=== PATIENT | male | born 1980 | race Caucasian/White ===

== ENCOUNTER 2024-01-20 05:16 | Inpatient (IN) | payer BC ==
[~2024-01-20] VITALS: Ht 165.1 cm; Wt 94.3 kg
[2024-01-20 05:36] VITALS: BP_SYST 153; PULSE 113; RESP 18; TEMP 97.9; O2SAT 99
[2024-01-20 07:31] LABS: BASOPHILS # (AUTO) 0.1 K/uL (0.0-0.2); BASOPHILS % (AUTO) 1.1 % (0.0-2.0); EOSINOPHILS # (AUTO) 0.1 K/uL (0.0-0.4); EOSINOPHILS % (AUTO) 1.1 % (0.0-4.0); HEMATOCRIT 36.2 % (36-54); HEMOGLOBIN 12.6 g/dL (14.0-18.0); LYMPHOCYTES # (AUTO) 2.8 K/uL (1.0-5.5); LYMPHOCYTES % (AUTO) 22.3 % (20.5-51.5); MEAN CORPUSCULAR HEMOGLOBIN 35 pg (27-31); MEAN CORPUSCULAR HGB CONC 35 % (32-36); MEAN CORPUSCULAR VOLUME 101 fL (79.0-98.0); MONOCYTES # (AUTO) 0.9 K/uL (0.0-1.0); MONOCYTES % (AUTO) 7.3 % (1.7-9.3); NEUTROPHILS # (AUTO) 8.5 K/uL (1.8-7.7); NEUTROPHILS % (AUTO) 68.2 % (40.0-70.0); PLATELET COUNT (AUTO) 187 K/uL (130-430); WHITE BLOOD COUNT (AUTO) 12.5 K/uL (4.8-10.8)
[2024-01-20 07:56] LABS: INR 1.2 (0.80-1.20); PROTHROMBIN TIME 12.8 SECS (9.5-12.5)
[2024-01-20 07:59] LABS: ALBUMIN 2.6 g/dL (3.4-4.8); BILIRUBIN,DIRECT 3.3 mg/dL (0.0-0.3); CALCIUM 8.8 mg/dL (8.4-11.0); CREATININE 0.68 mg/dL (0.55-1.30); POTASSIUM 3.4 mmol/L (3.5-5.1); TOTAL BILIRUBIN 4.6 mg/dL (0.0-1.0); TOTAL PROTEIN, SERUM 9.1 g/dL (6.4-8.3)
[2024-01-20] MEDS: PANTOPRAZOLE SODIUM 40 MG/VIAL (PROTONIX) IVP ONE (09:38)
[2024-01-20] MEDS ORDERED: FOLIC ACID 1 MG, THIAMINE HCL 100 MG, MAGNESIUM SULFATE 1 GM, MVI 10 ML in NACL 0.9% 1,... IV SCH (12:00)
[2024-01-20] MEDS ORDERED: LORazepam 2 MG/ML VIAL IVP PRN (12:00)
[2024-01-20] MEDS: chlordiazePOXIDE HCL 25 MG CAPSULE PO SCH (14:37)
[2024-01-20] MEDS: THIAMINE HCL 100 MG, MAGNESIUM SULFATE 1 GM in NS 100 ML IV SCH (14:44)
[2024-01-20] MEDS: FOLIC ACID 1 MG, MVI 10 ML in NACL 0.9% 1,000 ML IV SCH (14:56)
[2024-01-20 18:05] VITALS: BP_SYST 131; PULSE 86; RESP 16; TEMP 98.7; O2SAT 97
[2024-01-20 20:00] VITALS: BP_SYST 127; PULSE 98; RESP 18; TEMP 97.8; O2SAT 99
[2024-01-20] MEDS: PANTOPRAZOLE SODIUM 40 MG/VIAL (PROTONIX) IVP SCH (20:20)
[2024-01-21] VITALS: BP_SYST 124; PULSE 78; RESP 18; TEMP 97.8; O2SAT 99
[2024-01-21 05:29] LABS: BASOPHILS # (AUTO) 0.1 K/uL (0.0-0.2); BASOPHILS % (AUTO) 0.7 % (0.0-2.0); EOSINOPHILS # (AUTO) 0.3 K/uL (0.0-0.4); EOSINOPHILS % (AUTO) 2.2 % (0.0-4.0); HEMATOCRIT 32.5 % (36-54); HEMOGLOBIN 11.3 g/dL (14.0-18.0); LYMPHOCYTES # (AUTO) 3.6 K/uL (1.0-5.5); LYMPHOCYTES % (AUTO) 29.6 % (20.5-51.5); MEAN CORPUSCULAR HEMOGLOBIN 36 pg (27-31); MEAN CORPUSCULAR HGB CONC 35 % (32-36); MEAN CORPUSCULAR VOLUME 102 fL (79.0-98.0); MONOCYTES % (AUTO) 8.4 % (1.7-9.3); NEUTROPHILS # (AUTO) 7.2 K/uL (1.8-7.7); NEUTROPHILS % (AUTO) 59.1 % (40.0-70.0); PLATELET COUNT (AUTO) 166 K/uL (130-430); RED BLOOD CELL COUNT(AUTO) 3.19 MIL/uL (4.2-6.2); RED CELL DISTRIBUTION WIDTH 15.7 % (9.0-15.0); WHITE BLOOD COUNT (AUTO) 12.2 K/uL (4.8-10.8)
[2024-01-21 05:42] LABS: INR 1.3 (0.80-1.20); PROTHROMBIN TIME 13.3 SECS (9.5-12.5)
[2024-01-21 06:17] LABS: ALBUMIN 2.3 g/dL (3.4-4.8); CALCIUM 8.2 mg/dL (8.4-11.0); CREATININE 0.65 mg/dL (0.55-1.30); POTASSIUM 3.4 mmol/L (3.5-5.1); TOTAL PROTEIN, SERUM 8.4 g/dL (6.4-8.3)
[2024-01-21 08:05] VITALS: O2SAT 98
[2024-01-21 08:29] VITALS: BP_SYST 122; BP_SYST 126; PULSE 118; PULSE 85; RESP 18; TEMP 97.9; TEMP 98.8; O2SAT 97; O2SAT 98
[2024-01-21 11:46] VITALS: BP_SYST 130; PULSE 89; RESP 16; TEMP 98.5; O2SAT 98
[2024-01-21 16:30] VITALS: BP_SYST 126; PULSE 80; RESP 17; TEMP 97.9; O2SAT 97
[2024-01-21] MEDS: POTASSIUM CHLORIDE 20 MEQ TABLET.ER PO ONE (17:16)
[2024-01-21 20:00] VITALS: BP_SYST 137; PULSE 94; RESP 18; TEMP 98.8; O2SAT 97
[2024-01-22] VITALS (7 sets, daily range): BP systolic 123–135; PULSE 87–98; RESP 15–18; TEMP 97.3–99.7; O2SAT 97–99
[2024-01-22 06:02] LABS: BASOPHILS # (AUTO) 0.1 K/uL (0.0-0.2); BASOPHILS % (AUTO) 0.8 % (0.0-2.0); EOSINOPHILS # (AUTO) 0.3 K/uL (0.0-0.4); EOSINOPHILS % (AUTO) 2.7 % (0.0-4.0); HEMATOCRIT 32.5 % (36-54); HEMOGLOBIN 11.1 g/dL (14.0-18.0); LYMPHOCYTES # (AUTO) 3.7 K/uL (1.0-5.5); LYMPHOCYTES % (AUTO) 31.7 % (20.5-51.5); MEAN CORPUSCULAR HEMOGLOBIN 35 pg (27-31); MEAN CORPUSCULAR HGB CONC 34 % (32-36); MEAN CORPUSCULAR VOLUME 103 fL (79.0-98.0); MONOCYTES % (AUTO) 8.5 % (1.7-9.3); NEUTROPHILS # (AUTO) 6.5 K/uL (1.8-7.7); NEUTROPHILS % (AUTO) 56.3 % (40.0-70.0); PLATELET COUNT (AUTO) 164 K/uL (130-430); RED BLOOD CELL COUNT(AUTO) 3.17 MIL/uL (4.2-6.2); WHITE BLOOD COUNT (AUTO) 11.6 K/uL (4.8-10.8)
[2024-01-22 06:07] LABS: INR 1.3 (0.80-1.20); PROTHROMBIN TIME 12.9 SECS (9.5-12.5)
[2024-01-22 06:25] LABS: ALBUMIN 2.2 g/dL (3.4-4.8); CALCIUM 8.4 mg/dL (8.4-11.0); CREATININE 0.64 mg/dL (0.55-1.30); POTASSIUM 3.7 mmol/L (3.5-5.1); TOTAL BILIRUBIN 4.6 mg/dL (0.0-1.0); TOTAL PROTEIN, SERUM 7.7 g/dL (6.4-8.3)
[2024-01-22] MEDS: BISACODYL 5 MG TABLET.DR (DULCOLAX) PO ONE (16:54)
[2024-01-22] MEDS: GOLYTELY / COLYTE SOLUTION 4 LITERS PO ONE (17:43)
[2024-01-23 01:10] VITALS: BP_SYST 131; PULSE 91; RESP 18; TEMP 98.6; O2SAT 92
[2024-01-23 04:54] LABS: INR 1.3 (0.80-1.20); PROTHROMBIN TIME 12.9 SECS (9.5-12.5)
[2024-01-23] MEDS ORDERED: fentaNYL CITRATE/PF 100 MCG/2 ML AMP ONE ×2 (07:07→08:58)
[2024-01-23] MEDS ORDERED: MIDAZOLAM HCL 5 MG/5 ML VIAL ONE ×2 (07:07→08:59)
[2024-01-23] MEDS ORDERED: SIMETHICONE 40 MG/0.6 ML ML ONE ×2 (07:07→08:58)
[2024-01-23 08:34] VITALS: BP_SYST 120; PULSE 84; RESP 18; TEMP 97.4; O2SAT 99
[2024-01-23 11:05] VITALS: BP_SYST 129; PULSE 70; RESP 16; TEMP 97.9; O2SAT 95
[2024-01-23] MEDS ORDERED: CHLO25CA10 PO (13:54)
[2024-01-23 15:25] VITALS: BP_SYST 123; PULSE 98; RESP 15; TEMP 98.2; O2SAT 98
[2024-01-23 16:14] VITALS: BP_SYST 145; PULSE 99; RESP 18; TEMP 97.7; O2SAT 96
== END 2024-01-23 18:40 | disposition home or self-care (01) | DRG 393 ==
LOC: SED 05:16 → SMU 08:26 → STU 01-21 04:28 → SMU 01-22 13:35
PROVIDERS: ADMIT Internal Medicine; ATTEND Internal Medicine
PROC: 0DBM8ZX Excision of Descending Colon, Via Natural or Artificial Opening Endoscopic, Diagnostic (ICD-10-PCS; principal; 2024-01-23 10:45)
DX: K64.8 Other hemorrhoids (principal); E43 Unspecified severe protein-calorie malnutrition; D62 Acute posthemorrhagic anemia; R18.8 Other ascites; E80.6 Other disorders of bilirubin metabolism; E87.6 Hypokalemia; K74.69 Other cirrhosis of liver; E66.9 Obesity, unspecified; Z79.899 Other long term (current) drug therapy; Z68.34 Body mass index [BMI] 34.0-34.9, adult
CPT/HCPCS: 36415; 80048; 80053; 80076; 82150; 83605; 83690; 85025; 85610; 85730; 86886; 86900; 86901; 88305; 99285; C9113; G0378; J2250; J3010; J3411; J3475; J3490; J7030